=== PATIENT | female | born 1975 | race Caucasian/White ===

== ENCOUNTER 2017-01-05 19:34 | Emergency (ER) | payer SELFPAY ==
[~2017-01-05] VITALS: Ht 177.8 cm; Wt 77.6 kg
[~2017-01-05 19:34] MED LIST: AUGM875T PO; ERYT1O RIGHT EYE
[2017-01-05 19:40] VITALS: BP 140/72; PULSE 68; RESP 14; TEMP 97.8; O2SAT 98
[2017-01-05 20:05] VITALS: BP 124/71; PULSE 74; RESP 17; O2SAT 98
[2017-01-05] MEDS ORDERED: AZO-95TA2 PO (20:19)
[2017-01-05] MEDS ORDERED: MULTTAB24 (20:19)
[2017-01-05 20:41] LABS: BLOOD, URINE TRACE (NEG); GLUCOSE,URINE NEG (NEG); KETONE, URINE NEG (NEG)
[2017-01-05 20:48] LABS: NITRITE,URINE POS (NEG); URINE COLOR YELLOW (YELLW/STRAW)
[2017-01-05 20:49] LABS: MUCUS URINE RARE /lpf (OCC)
[2017-01-05 20:50] LABS: BACTERIA, URINE RARE /hpf; COMMENT (UR) CULTURE INDICATED; CULTURE IF INDICATED CULTURE INDICATED; RBC, URINE 0-3 /hpf (0-3); SQUAMOUS EPITHELIAL CELL URINE 0-5 /hpf (0-5)
[2017-01-05] MEDS ORDERED: CIPR-9 PO (21:09)
[2017-01-05] MEDS ORDERED: PHEN0.4T PO (21:09)
--- NOTE | 2017-01-05 21:10 | PD ---
HPI Chief Complaint: Complaint Time Seen by Provider: 21:08 Travel History International Travel<30 days: No Contact w/Intl Traveler<30days: No Traveled to known affect area: No History of Present Illness HPI 41-year-old female presents to the emergency department for one week of urinary frequency urgency and dysuria. No hematuria or flank pain. No fever or chills. No nausea vomiting anorexia or abdominal pain. Patient has previous history of kidney infections. Patient rates discomfort as moderate. Patient has used Azo gzxo-vld-agqxyvl medication today and noticed change in color of urine. Patient denies other concerns or complaints. Patient reports otherwise in good health and takes no medications on a daily basis. No prescription medications. PFSH Past Medical History Narrative Medical UTI, tubal ligation, alcohol use; nursing notes reviewed Medical History: Denies Significant Hx Diminished Hearing: No Migraines: No ?: Not Menopausal: No : 2 Para: 2 Tubal Ligation: Yes (2007) Past Surgical History Section: Yes (2004 & 2006) Gynecologic Surgery: Yes (C SECTION) Social History Alcohol Use: Yes (SOCIALLY) Tobacco Use: No Substance Use: No Allergies-Medications (Allergen,Severity, Reaction): Coded Allergies: No Known Allergies (Verified , 01/05/17) Reported Meds & Prescriptions Reported Meds & Active Scripts Active Cipro (Ciprofloxacin HCl) 500 Mg Tab 500 Mg PO BID 7 Days Pyridium (Phenazopyridine HCl) 100 Mg Tab 100 Mg PO Q8H PRN Reported Multi For Her (Multiple Vitamins W/ Minerals) 1 Tab Tab Azo-Standard (Phenazopyridine HCl) 95 Mg Tab 95 Mg PO Q8H PRN Review of Systems Except as stated in HPI: all other systems reviewed are Neg General / Constitutional: No: Fever, Chills HENT: No: Congestion Cardiovascular: No: Chest Pain or Discomfort Respiratory: No: Shortness of Breath Gastrointestinal: Positive: Abdominal Pain (suprapubic pressure) Genitourinary: Positive: Urgency, Frequency, Dysuria, No: Hematuria, Flank Pain Musculoskeletal: No: Myalgias Skin: No Rash Neurologic: No: Weakness Hematologic/Lymphatic: No: Easy Bruising Physical Exam Narrative GENERAL: Well-developed well-nourished female in acute distress no respiratory distress SKIN: Warm and dry. HEAD: Normocephalic. EYES: No scleral icterus. No injection or drainage. NECK: Supple, trachea midline. No JVD or lymphadenopathy. CARDIOVASCULAR: Regular rate and rhythm without murmurs, gallops, or rubs. RESPIRATORY: Breath sounds equal bilaterally. No accessory muscle use. GASTROINTESTINAL: Abdomen soft, non-tender, nondistended. MUSCULOSKELETAL: No cyanosis, or edema. BACK: Nontender without obvious deformity. No CVA tenderness. Data Data Last Documented VS Vital Signs Date Time Temp Pulse Resp B/P Pulse Ox O2 Delivery O2 Flow Rate FiO2 01/05/17 21:38 70 16 144/56 98 Room Air 01/05/17 19:40 97.8 Orders Urinalysis - C+S If Indicated (01/05/17 19:42) Urine Culture (01/05/17 20:30) Ed Urine Pregnancytest Poc (01/05/17 21:10) Ciprofloxacin (Cipro) (01/05/17 21:15) Labs Laboratory Tests Test 01/05/17 20:30 Urine Color YELLOW Urine Turbidity CLEAR Urine pH 6.0 Urine Specific [place] 1.005 Urine Protein NEG mg/dL Urine Glucose (UA) NEG mg/dL Urine Ketones NEG mg/dL Urine Occult Blood TRACE Urine Nitrite POS Urine Bilirubin NEG Urine Leukocyte Esterase TRACE Urine RBC 0-3 /hpf Urine WBC 6-8 /hpf Urine WBC Clumps FEW Urine Squamous Epithelial 0-5 /hpf Cells Urine Bacteria RARE /hpf Urine Mucus RARE /lpf Microscopic Urinalysis Comment CULTURE INDICATED MDM Medical Decision Making Medical Screen Exam Complete: Yes Emergency Medical Condition: Yes Medical Record Reviewed: Yes Interpretation(s) POC hCG: Negative Urinalysis positive nitrites positive leukocyte Estrace positive white blood cells clumped white blood cells and bacteria; culture indicated Differential Diagnosis UTI, ectopic , STI, diverticulitis, appendicitis Narrative Course Specimen sent for urinalysis and [id number] hCG [id number]-[id number] hCG negative; urinalysis abnormal for nitrites leukocyte Estrace white blood cells Red blood cells and bacteria; patient informed of lab results and given first dose of oral antibiotic. Patient given prescription for antibiotic Cipro and Pyridium. Patient is stable for outpatient management Diagnosis Primary Impression: UTI (urinary tract infection) Referrals: Primary Care Physician call for appointment Patient Instructions: General Instructions Additional Instructions: Increase fluid hydration Complete course of antibiotic as prescribed Take acetaminophen as needed for fever 100.4F or greater Take ibuprofen/Advil/Motrin every 6-8 hours as needed for fever 100.4F or greater pain associated with inflammation Follow-up with primary care provider Return to the emergency department for any concerns or change condition Med/Other Pt SpecificInfo: Prescription(s) given Scripts Ciprofloxacin (Cipro)500 Mg [id number] Mg PO BID 7 Days Ref 0 Prov:Katharina Cho MD 01/05/17 Phenazopyridine (Pyridium)100 Mg [id number] Mg PO Q8H PRN (DYSURIA) #6 TAB Ref 0 Prov:Katharina Cho MD 01/05/17 Disposition: 01 DISCHARGE HOME Condition: Stable Katharina Cho MD Jan 05, 2017 21:09
[2017-01-05] MEDS ORDERED: CIPROFLOXACIN 500 MG TAB PO ONE (21:15)
[2017-01-05 21:38] VITALS: BP 144/56; PULSE 70; RESP 16; O2SAT 98
== END 2017-01-05 21:46 | disposition home or self-care (01) ==
LOC: PHED 19:34
DX: N39.0 Urinary tract infection, site not specified (principal)
CPT/HCPCS: 81001; 84703; 87086; 99283